=== PATIENT | male | born 1985 | race African-American/Black ===

== ENCOUNTER 2023-02-23 17:32 | Emergency (ER) | payer SELFPAY ==
[~2023-02-23] VITALS: Ht 180.3 cm; Wt 91.0 kg
[2023-02-23 17:40] VITALS: TEMP 98; O2SAT 99
[2023-02-23] MEDS ORDERED: IBUPROFEN 600MG TABLET PO ONE (18:15)
[2023-02-23] MEDS ORDERED: IBUP-2029 MT (18:18)
[2023-02-23] MEDS ORDERED: AMOX-494 MT (18:18)
[2023-02-23 18:19] VITALS: BP 150/92; PULSE 79; RESP 16
== END 2023-02-23 18:51 | disposition home or self-care (01) ==
LOC: ER 17:32
DX: K04.7 Periapical abscess without sinus (principal); R68.84 Jaw pain
CPT/HCPCS: 99283